=== PATIENT | female | born 1980 | race Caucasian/White ===

== ENCOUNTER 2023-06-27 23:25 | Emergency (ER) | payer OTHER ==
[2023-06-27] MEDS ORDERED: FAMOTIDINE 20 MG/50 ML IVPB 20 MG/50 ML MG IVPB ONE ×2 (23:34→23:36)
[2023-06-27] MEDS ORDERED: methylPREDNISolone NA SUCC 125 MG/2 ML VIAL IVPUSH ONE (23:34)
[2023-06-27] MEDS ORDERED: methylPREDNISolone NA SUCC 125 MG/2 ML VIAL ONE (23:36)
[2023-06-28 00:04] LABS: POTASSIUM 3.8 mmol/L (3.5-5.1)
[2023-06-28 00:06] LABS: CALCIUM 8.2 mg/dL (8.5-10.1)
[2023-06-28 00:07] LABS: ALBUMIN 3.5 g/dl (3.4-5.0); BLOOD UREA NITROGEN 11.7 mg/dL (7-18)
[2023-06-28 00:10] LABS: CREATININE 0.7 mg/dL (0.55-1.3)
[2023-06-28 00:12] LABS: BILIRUBIN,TOTAL 0.6 mg/dL (0.2-1); TOT PROT 7.1 g/dl (6.4-8.2)
[2023-06-28 00:17] LABS: BASO % 0.1 % (0-2.0); EOS % 2.5 % (0-4.5); HEMATOCRIT 37.2 % (32.4-45.2); LYMPH % 34.3 % (8-40); MCH 29.3 pg (25.7-33.7); MCHC 35.1 g/dl (32.0-36.0); MEAN CELL VOLUME 83.4 fl (80-96); MEAN PLT VOLUME 9.3 fl (7.5-11.1); MONO % 4.2 % (3.8-10.2); NEUT % 58.9 % (42.8-82.8); PLATELET COUNT 201 10^3/uL (134-434); RBC 4.46 M/mm3 (3.60-5.2); RDW 12.6 % (11.6-15.6); WHITE BLOOD COUNT 5.6 K/mm3 (4.0-10.0)
[2023-06-28 00:20] LABS: INR 0.99 (0.83-1.09); PROTHROMBIN TIME (PATIENT) 11.5 SEC (9.7-13.0)
[2023-06-28 00:23] LABS: ACTIVATED PTT 29.1 SECONDS (25.2-36.5)
[2023-06-28 00:29] VITALS: BP 149/89; PULSE 77; RESP 18; TEMP 97.7; BMI 29.2
== END 2023-06-28 06:24 | disposition home or self-care (01) ==
LOC: JER 23:25
PROC: 3E033GC Introduction of Other Therapeutic Substance into Peripheral Vein, Percutaneous Approach (ICD-10-PCS; principal; 2023-06-27)
PROC: 3E033GC Introduction of Other Therapeutic Substance into Peripheral Vein, Percutaneous Approach (ICD-10-PCS; 2023-06-27)
PROC: 3E033GC Introduction of Other Therapeutic Substance into Peripheral Vein, Percutaneous Approach (ICD-10-PCS; 2023-06-27)
DX: R21 Rash and other nonspecific skin eruption (principal); L29.9 Pruritus, unspecified; R06.02 Shortness of breath; R19.7 Diarrhea, unspecified; L50.0 Allergic urticaria
CPT/HCPCS: 36415; 71045-TC-FY; 71250-TC; 80053; 84484; 84703; 85025; 85610; 85730; 86850; 86900; 86901; 93005; 93010; 99285-25